=== PATIENT | male | born 1985 | race Hispanic/Latino ===

== ENCOUNTER 2022-10-04 16:59 | Emergency (ER) | payer MEDICARE ==
[~2022-10-04] VITALS: Ht 157.5 cm; Wt 70.5 kg
[2022-10-04] MEDS ORDERED: LEVE500S7 PO (17:39)
[2022-10-04 18:25] LABS: BASOPHILS # (AUTO) 0.03 K/uL (0.00-0.20); BASOPHILS % (AUTO) 0.7 % (0.0-5.0); EOSINOPHILS # (AUTO) 0.11 K/uL (0.00-0.70); EOSINOPHILS % (AUTO) 2.5 % (0.0-8.0); IMMATURE GRANULOCYTE ABSOLUTE 0.01 K/uL (0-1); LYMPHOCYTES # (AUTO) 1.2 K/uL (1.0-4.8); LYMPHOCYTES % (AUTO) 26.6 % (21.0-51.0); MEAN CORPUSCULAR HEMOGLOBIN 28.4 pg (27.0-33.0); MEAN CORPUSCULAR HGB CONC 33.7 g/dL (32.0-36.0); MEAN CORPUSCULAR VOLUME 84.1 fL (79-99); MONOCYTES # (AUTO) 0.5 K/uL (0.1-1.0); MONOCYTES % (AUTO) 10.3 % (3.0-13.0); NEUTROPHILS # (AUTO) 2.6 K/uL (1.8-7.7); NEUTROPHILS % (AUTO) 59.7 % (40.0-77.0); PLATELET COUNT (AUTO) 193 K/uL (130-400); RED BLOOD CELL COUNT(AUTO) 5.11 MIL/uL (4.50-6.20); RED CELL DISTRIBUTION WIDTH 13.6 % (11.0-15.5); WHITE BLOOD COUNT (AUTO) 4.4 K/uL (4.8-10.8)
[2022-10-04 18:42] LABS: CREATININE 0.7 mg/dL (0.5-1.5); POTASSIUM 3.7 mmol/L (3.5-5.1)
[2022-10-04 18:53] LABS: ALBUMIN 3.6 g/dL (3.5-5.0); BILIRUBIN,TOTAL 0.6 mg/dL (0.2-1.0); TOTAL PROTEIN, SERUM 7.4 g/dL (6.0-8.3)
[2022-10-04 19:46] VITALS: BP 96/59; PULSE 77; RESP 14; O2SAT 98
[2022-10-04 19:57] LABS: APPEARANCE,URINE CLEAR (CLEAR); BILIRUBIN,URINE NEGATIVE (NEGATIVE); COLOR,URINE YELLOW (YELLOW); GLUCOSE, URINE (UA) NEGATIVE (NEGATIVE); KETONES,URINE 10 mg/dL (NEGATIVE); LEUKOCYTE ESTERASE ,URINE NEGATIVE Leu/uL (NEGATIVE); NITRATE,URINE NEGATIVE (NEGATIVE); OCCULT BLOOD,URINE NEGATIVE (NEGATIVE); PROTEIN,URINE 10 mg/dL (NEGATIVE); UROBILINOGEN,URINE 0.2 mg/dL (0.2-1.0)
[2022-10-04 19:58] LABS: ADD UA MICROSCOPIC YES
[2022-10-04 20:07] LABS: MUCUS,URINE MOD LPF (None Seen); RBC,URINE 0-1 /HPF (0-1); SQUAMOUS EPITHELIAL CELL,UR RARE /HPF (0-2); WBC,URINE 0-1 /HPF (0-1)
[2022-10-04] MEDS ORDERED: 0.9%NACL 1000ML 1,000 ML IV ONE ×2 (20:30)
== END 2022-10-04 20:45 | disposition home or self-care (01) ==
LOC: EDH 16:59
DX: I95.9 Hypotension, unspecified (principal)
CPT/HCPCS: 36415; 71045; 80053; 81001; 82550; 83605; 83874; 84484; 85025; 86850; 86900; 86901; 93005

== ENCOUNTER 2022-10-07 10:22 | Inpatient (IN) | payer MEDICARE ==
[2022-10-04 16:45] VITALS: BP 86/58; PULSE 76; RESP 19
[2022-10-04 16:51] LABS: INR 0.95 (0.85-1.15); PROTHROMBIN TIME 11.1 SEC (9.6-11.6)
[~2022-10-07] VITALS: Ht 157.5 cm; Wt 73.2 kg
[~2022-10-07 10:22] MED LIST: LEVE500S7 PO
[2022-10-07 11:00] VITALS: BP 101/66; PULSE 76; RESP 18
[2022-10-07] MEDS ORDERED: 0.9%NACL 1000ML 1,000 ML IV ONE (11:50)
[2022-10-07] MEDS ORDERED: BISACODYL 5 MG TABLET.DR PO ONE ×2 (14:23→16:15)
[2022-10-07] MEDS ORDERED: LACTULOSE 20 GM/30 ML UDCUP PO ONE ×2 (14:30→20:00)
[2022-10-07 15:39] VITALS: BP 109/65; PULSE 80; RESP 18
[2022-10-07] MEDS ORDERED: PEG 3350/NA SULF,BICARB,CL/KCL 4000 ML SOLN PO ONE (16:30)
[2022-10-07] MEDS ORDERED: HEMORRHOIDAL OINTMENT 57 GM CREAM.GM. RC PRN (17:30)
[2022-10-07 17:33] VITALS: BP 101/61; PULSE 88; RESP 18
[2022-10-07 18:03] LABS: BASOPHILS # (AUTO) 0.04 K/uL (0.00-0.20); BASOPHILS % (AUTO) 0.7 % (0.0-5.0); EOSINOPHILS % (AUTO) 1.8 % (0.0-8.0); HEMATOCRIT 42.5 % (42-54); IMMATURE GRANULOCYTE ABSOLUTE 0.01 K/uL (0-1); LYMPHOCYTES # (AUTO) 1.3 K/uL (1.0-4.8); LYMPHOCYTES % (AUTO) 22.9 % (21.0-51.0); MEAN CORPUSCULAR HEMOGLOBIN 28.5 pg (27.0-33.0); MEAN CORPUSCULAR HGB CONC 34.4 g/dL (32.0-36.0); MEAN CORPUSCULAR VOLUME 82.8 fL (79-99); MONOCYTES # (AUTO) 0.4 K/uL (0.1-1.0); MONOCYTES % (AUTO) 7.7 % (3.0-13.0); NEUTROPHILS # (AUTO) 3.7 K/uL (1.8-7.7); NEUTROPHILS % (AUTO) 66.7 % (40.0-77.0); PLATELET COUNT (AUTO) 214 K/uL (130-400); RED BLOOD CELL COUNT(AUTO) 5.13 MIL/uL (4.50-6.20); RED CELL DISTRIBUTION WIDTH 13.7 % (11.0-15.5); WHITE BLOOD COUNT (AUTO) 5.6 K/uL (4.8-10.8)
[2022-10-07] MEDS: PROMETHAZINE HCL 25 MG/ML 1ML AMPULE IM PRN (18:12)
[2022-10-07 18:14] LABS: INR 0.94 (0.85-1.15)
[2022-10-07 18:16] LABS: PARTIAL THROMBOPLASTIN TIME 28.7 SEC (26.3-35.5)
[2022-10-07 18:17] LABS: ALBUMIN 3.7 g/dL (3.5-5.0); BILIRUBIN,TOTAL 0.6 mg/dL (0.2-1.0); CREATININE 0.7 mg/dL (0.5-1.5); POTASSIUM 3.2 mmol/L (3.5-5.1); TOTAL PROTEIN, SERUM 7.5 g/dL (6.0-8.3)
[2022-10-07 19:00] VITALS: BP 92/65; PULSE 69; RESP 19
[2022-10-07] MEDS ORDERED: POLYETHYLENE GLYCOL 3350 17 GM POWD.PACK PO ONE (20:00)
[2022-10-07] MEDS ORDERED: BISACODYL 10 MG SUPP.RECT RC ONE (20:00)
[2022-10-07] MEDS: DEXTROSE 5 %-0.45 % NACL 1,000 ML IV SCH (21:38)
[2022-10-07 21:40] VITALS: O2SAT 99
[2022-10-07] MEDS ORDERED: BISACODYL 5 MG TABLET.DR PO SCH (22:00)
[2022-10-07 23:00] VITALS: BP 102/47; PULSE 71; RESP 16
[2022-10-08] VITALS (7 sets, daily range): BP systolic 97–143; BP diastolic 55–89; PULSE 65–79; RESP 16–20; O2SAT 99–100
[2022-10-08] MEDS ORDERED: BISACODYL 10 MG SUPP.RECT RC PRN
[2022-10-08] MEDS ORDERED: BISACODYL 5 MG TABLET.DR PO SCH
[2022-10-08] MEDS: PROMETHAZINE HCL 25 MG/ML 1ML AMPULE IM PRN (00:36)
[2022-10-08 05:28] LABS: HEMATOCRIT 39.9 % (42-54); MEAN CORPUSCULAR HEMOGLOBIN 28.4 pg (27.0-33.0); MEAN CORPUSCULAR HGB CONC 34.1 g/dL (32.0-36.0); MEAN CORPUSCULAR VOLUME 83.3 fL (79-99); RED BLOOD CELL COUNT(AUTO) 4.79 MIL/uL (4.50-6.20); RED CELL DISTRIBUTION WIDTH 13.7 % (11.0-15.5); WHITE BLOOD COUNT (AUTO) 4.6 K/uL (4.8-10.8)
[2022-10-08] MEDS: DEXTROSE 5 %-0.45 % NACL 1,000 ML IV SCH ×2 (05:29→18:24)
[2022-10-08 05:44] LABS: CREATININE 0.6 mg/dL (0.5-1.5); POTASSIUM 3.2 mmol/L (3.5-5.1)
[2022-10-08] MEDS ORDERED: LEVETIRACETAM 100 MG/ML 5 ML UDCUP PO SCH (09:00)
[2022-10-08] MEDS ORDERED: OXYMETAZOLINE HCL SPRAY 15 ML BOTTLE EN SCH ×2 (11:00→11:30)
[2022-10-08] MEDS ORDERED: DIATR MEGLU/DIATRIZOATE SODIUM 30 ML BOTTLE ONE (15:55)
[2022-10-08] MEDS ORDERED: IOHEXOL-350 50ML VIAL IV ONE (15:55)
[2022-10-08] MEDS: LEVETIRACETAM 100 MG/ML 5 ML UDCUP PO SCH (21:14)
[2022-10-08] MEDS ORDERED: POTASSIUM CHLORIDE 10% ELIXIR 20 MEQ/15 ML UDCUP ONE (22:27)
[2022-10-08] MEDS: ACETAMINOPHEN 325 MG/10.15ML UDCUP PO PRN (22:29)
[2022-10-08] MEDS ORDERED: MAGNESIUM 2GM PREMIX 50ML 50 ML IV PRN (22:30)
[2022-10-08] MEDS ORDERED: MORPHINE 2 MG SYG IVP PRN (22:30)
[2022-10-08] MEDS ORDERED: POTASSIUM CHLORIDE 10% ELIXIR 20 MEQ/15 ML UDCUP PO PRN (22:30)
[2022-10-08] MEDS ORDERED: KCL 20 MEQ ERTAB PO PRN (22:30)
[2022-10-08] MEDS: POTASSIUM CHLORIDE 20MEQ/100ML 100 ML IV PRN (22:37)
[2022-10-09] VITALS (28 sets, daily range): BP systolic 96–130; BP diastolic 56–73; PULSE 61–113; RESP 13–19; O2SAT 96–100
[2022-10-09] MEDS: DEXTROSE 5 %-0.45 % NACL 1,000 ML IV SCH ×3 (01:43→21:18)
[2022-10-09] MEDS: POTASSIUM CHLORIDE 20MEQ/100ML 100 ML IV PRN (01:44)
[2022-10-09 05:32] LABS: HEMATOCRIT 40.4 % (42-54); MEAN CORPUSCULAR HEMOGLOBIN 28.6 pg (27.0-33.0); MEAN CORPUSCULAR HGB CONC 33.7 g/dL (32.0-36.0); MEAN CORPUSCULAR VOLUME 84.9 fL (79-99); RED BLOOD CELL COUNT(AUTO) 4.76 MIL/uL (4.50-6.20); RED CELL DISTRIBUTION WIDTH 14.1 % (11.0-15.5); WHITE BLOOD COUNT (AUTO) 4.2 K/uL (4.8-10.8)
[2022-10-09 06:29] LABS: ALBUMIN 3.1 g/dL (3.5-5.0); CREATININE 0.7 mg/dL (0.5-1.5); POTASSIUM 3.9 mmol/L (3.5-5.1); TOTAL PROTEIN, SERUM 6.7 g/dL (6.0-8.3)
[2022-10-09] MEDS ORDERED: SUCCINYLCHOLINE 200MG/10ML SYR ONE (12:51)
[2022-10-09] MEDS ORDERED: NEOSTIGMINE 5MG/5ML SYR IV ONE (12:52)
[2022-10-09] MEDS ORDERED: PROPOFOL 10 MG/ML 20ML VIAL IV ONE ×2 (12:52→12:53)
[2022-10-09] MEDS ORDERED: MIDAZOLAM HCL 1 MG/ML 2ML VIAL ONE (12:52)
[2022-10-09] MEDS ORDERED: GLYCOPYRROLATE 1 MG/5 ML SYRINGE ONE (12:52)
[2022-10-09] MEDS ORDERED: ROCURONIUM 10MG/1ML SYR 10 MG/ML ML ONE (12:52)
[2022-10-09] MEDS ORDERED: FENTANYL CITRATE PF 50 MCG/1 ML 5ML AMP IV ONE (12:52)
[2022-10-09] MEDS ORDERED: LIDOCAINE PF 100MG/5ML (2%) SYRINGE 5ML ONE (12:53)
[2022-10-09] MEDS ORDERED: EPINEPHRINE 1 MG/ML 30ML VIAL IJ ONE (12:57)
[2022-10-09] MEDS ORDERED: ONDANSETRON 4MG INJ ONE ×2 (12:58→15:01)
[2022-10-09] MEDS ORDERED: FAMOTIDINE 20MG VIAL IV ONE (13:00)
[2022-10-09] MEDS ORDERED: EPHEDRINE SULFATE 50 MG/ML AMPULE ONE (13:55)
[2022-10-09] MEDS ORDERED: BISACODYL 5 MG TABLET.DR PO SCH (21:00)
[2022-10-09] MEDS ORDERED: LACTULOSE 20 GM/30 ML UDCUP PO ONE ×2 (21:00→22:30)
[2022-10-09] MEDS ORDERED: PEG 3350/NA SULF,BICARB,CL/KCL 4000 ML SOLN PO ONE (21:00)
[2022-10-09] MEDS: PROMETHAZINE HCL 25 MG/ML 1ML AMPULE IM PRN (21:10)
[2022-10-09] MEDS: ACETAMINOPHEN 325 MG/10.15ML UDCUP PO PRN (22:30)
[2022-10-09] MEDS: LEVETIRACETAM 100 MG/ML 5 ML UDCUP PO SCH (22:31)
[2022-10-10] VITALS (23 sets, daily range): BP systolic 90–118; BP diastolic 52–69; PULSE 64–91; RESP 12–20; O2SAT 98
[2022-10-10] MEDS ORDERED: BISACODYL 5 MG TABLET.DR PO SCH ×2 (05:00)
[2022-10-10 08:25] LABS: HEMATOCRIT 40.4 % (42-54); MEAN CORPUSCULAR HEMOGLOBIN 28.6 pg (27.0-33.0); MEAN CORPUSCULAR HGB CONC 33.7 g/dL (32.0-36.0); MEAN CORPUSCULAR VOLUME 85.1 fL (79-99); RED BLOOD CELL COUNT(AUTO) 4.75 MIL/uL (4.50-6.20); WHITE BLOOD COUNT (AUTO) 4.3 K/uL (4.8-10.8)
[2022-10-10 08:34] LABS: CREATININE 0.7 mg/dL (0.5-1.5); MAGNESIUM 1.7 mg/dL (1.80-2.40); POTASSIUM 3.3 mmol/L (3.5-5.1)
[2022-10-10] MEDS: DEXTROSE 5 %-0.45 % NACL 1,000 ML IV SCH ×2 (09:25→16:51)
[2022-10-10] MEDS ORDERED: MAGNESIUM 4GM PREMIX 100ML 100 ML IV SCH (09:30)
[2022-10-10] MEDS ORDERED: PROPOFOL 10 MG/ML 20ML VIAL IV ONE (13:32)
[2022-10-10] MEDS ORDERED: LIDOCAINE PF 100MG/5ML (2%) SYRINGE 5ML ONE (13:32)
[2022-10-10] MEDS: POTASSIUM CHLORIDE 10% ELIXIR 20 MEQ/15 ML UDCUP PO PRN ×2 (16:35→16:37)
[2022-10-10] MEDS: ACETAMINOPHEN 325 MG/10.15ML UDCUP PO PRN (20:00)
[2022-10-10] MEDS: LEVETIRACETAM 100 MG/ML 5 ML UDCUP PO SCH (22:47)
[2022-10-11] VITALS: BP_SYST 121; BP_SYST 134; BP_DIAS 58; BP_DIAS 61; PULSE 74; PULSE 77; RESP 17
[2022-10-11 04:00] VITALS: BP 121/61; PULSE 74; RESP 17
[2022-10-11 08:00] VITALS: BP 102/60; PULSE 78; RESP 18
[2022-10-11 08:50] VITALS: O2SAT 97
[2022-10-11 12:00] VITALS: BP 162/87; PULSE 86; RESP 18
[2022-10-11 16:00] VITALS: BP_SYST 142; BP_SYST 92; BP_DIAS 63; BP_DIAS 77; PULSE 75; PULSE 86; RESP 18
== END 2022-10-11 19:50 | disposition home or self-care (01) | DRG 392 ==
LOC: OBSVTOIN 10:22 → DAHIP 10:22 → EDSTATUS 12:00 → 3AH 15:10
PROVIDERS: ADMIT Internal Medicine Infectious Disease; ATTEND Internal Medicine Infectious Disease
PROC: 0CBS8ZX Excision of Larynx, Via Natural or Artificial Opening Endoscopic, Diagnostic (ICD-10-PCS; principal; 2022-10-09)
PROC: 0DB98ZX Excision of Duodenum, Via Natural or Artificial Opening Endoscopic, Diagnostic (ICD-10-PCS; 2022-10-09)
PROC: 0DB78ZX Excision of Stomach, Pylorus, Via Natural or Artificial Opening Endoscopic, Diagnostic (ICD-10-PCS; 2022-10-09)
PROC: 0DB58ZX Excision of Esophagus, Via Natural or Artificial Opening Endoscopic, Diagnostic (ICD-10-PCS; 2022-10-09)
PROC: 0DJD8ZZ Inspection of Lower Intestinal Tract, Via Natural or Artificial Opening Endoscopic (ICD-10-PCS; 2022-10-10)
DX: K29.00 Acute gastritis without bleeding (principal); K59.09 Other constipation; K21.00 Gastro-esophageal reflux disease with esophagitis, without bleeding; Z20.822 Contact with and (suspected) exposure to COVID-19; G40.909 Epilepsy, unspecified, not intractable, without status epilepticus; K29.80 Duodenitis without bleeding; K64.8 Other hemorrhoids; E66.09 Other obesity due to excess calories; E87.6 Hypokalemia; Z68.29 Body mass index [BMI] 29.0-29.9, adult
CPT/HCPCS: 36415; 43239; 45378; 70491; 71045; 80048; 80053; 81001; 82550; 82948; 83605; 83735; 83874; 84443; 84484; 85025; 85027; 85610; 85670; 85730; 86850; 86900; 86901; 87426; 93005; A4606; G0378; J0171; J0330; J2001; J2250; J2405; J2550; J2704; J2710; J3010; J3475; J3480; J3490; J7030; Q9963; Q9967; A4215; A4222; A4223; A4620; A4657; A7002